=== PATIENT | female | born 1975 | race Caucasian/White ===

== ENCOUNTER → 2016-08-30 | Outpatient (CLI) | payer OTHER | LOC: FIMAGING 12:51 | DX: Z12.31 Encounter for screening mammogram for malignant neoplasm of breast (principal) | CPT/HCPCS: G0202 ==

== ENCOUNTER → 2017-09-01 | Outpatient (CLI) | payer OTHER | LOC: FIMAGING 13:10 | DX: Z12.31 Encounter for screening mammogram for malignant neoplasm of breast (principal) ==

== ENCOUNTER → 2018-09-07 | Outpatient (CLI) | payer OTHER | LOC: FIMAGING 09:31 | PROVIDERS: ATTEND Midwife | DX: Z12.31 Encounter for screening mammogram for malignant neoplasm of breast (principal); R93.89 Abnormal findings on diagnostic imaging of other specified body structures ==